=== PATIENT | male | born 2000 | race Caucasian/White ===

== ENCOUNTER 2025-01-15 10:54 | Emergency (ER) | payer SELFPAY ==
[2025-01-15 10:59] VITALS: BP 130/95
--- NOTE | 2025-01-15 11:46 | ED.GENMED ---
History of Present Illness
General
Chief Complaint: Eye Problems
Source: patient
Exam Limitations: none
Time Seen by Provider: 01/15/25 11:31
Nursing documentation reviewed up to this point in time: agreed with
History of Present Illness
History of Present Illness:
Patient is a 24-year-old male who presents to the ER complaining of right eye irritation since Sunday for the past 2 days. He denies any exact injury but does work as a agricultural mechanic and was concerned that he may have gotten something in his eye. He
also notices that since his right eye has been irritated his right nares has been running. He denies any actual fever or chills. He does feel scratchy and feels a foreign body sensation to the right eye. He does not wear contacts. He denies any
fever or chills. He denies any decreased vision.
Phy Exam
General Physical Exam
General Presentation: no apparent distress
General age: appears stated age
General Skin: warm and dry
General Habitus: normal
General Mental: alert
General Hydration: appears well hydrated
Eye Exam
Eye Exam: PERRL, EOMI and other (right eye is injected + black small foreign body visible to right eye over cornea )
Able to obtain acuity?: Yes
Eye Exam General: PERRL: bilateral and EOM intact: bilateral
Pupil Exam: Bilateral: round and reactive
Neurological Exam
Neurological Exam: alert and oriented x3
Musculoskeletal Exam
Musculoskeletal Exam: full ROM
Skin Exam
Skin Exam: normal color and warm/dry
Psychiatric Exam
Psychiatric Exam: normal mood/affect
Course
Orders/Labs/Results
Orders:
Orders
01/15/25 12:32
Fluorescein Sodium [Ful-Josephine] 1 mg .ROUTE .STK-MED ONE
Tetracaine HCl [Tetracaine 0.5% Ophthalmic Solution] 2 drop .ROUTE .STK-MED ONE
01/15/25 13:07
Tetanus/Diphth/Acelpertussis [Adacel] 0.5 ml IM .ONCE ONE
Vital Signs
Initial and Last Documented VS:
Initial Vital Signs
Temp Pulse Resp BP Pulse Ox
98.3 F 73 16 130/95 98
01/15/25 10:59 01/15/25 10:59 01/15/25 10:59 01/15/25 10:59 01/15/25 10:59
Last Documented Vital Signs
Temp Pulse Resp BP Pulse Ox
98.3 F 73 16 130/95 98
01/15/25 10:59 01/15/25 10:59 01/15/25 10:59 01/15/25 10:59 01/15/25 11:47
MDM/Problems Addressed
MDM/Problems Addressed:
Patient works as a agricultural mechanic and complaint of right eye irritation for the past several days. He felt a foreign body sensation and on exam has a black foreign body in his right eye. I was not able to remove this. I did discuss with ophthalmology
Dr. Joshi and she will see him in the office at 1: 45 pm. pt is self pay and is is agreeable to going directly to the reimbursement specialist office. Patient is up-to-date on tetanus
*Pulse Oximetry
SaO2: 98
Oxygen Mode of Delivery: Room air
Patient hypoxic: no
*Critical Care Note
Total Time (30-74mins, 75-104mins- exclusive of procedures): Not Applicable
ED Attending Note
-
Portions of this chart may have been created with voice recognition software.� Occasional wrong word or��sound alike� substitutions may have occurred due to the inherent limitations of voice recognition software.
Discharge Plan
Departure
Patient Disposition: Home (Routine Discharge)
Date of Disposition: 01/15/25
Time of Disposition: 13:03
Patient with high blood pressure during this ER visit?: Yes
Condition: Fair
Covid-19: Not Applicable
Discharge Problem:
foreign body right eye
Instructions: Foreign Body in Eye (DC)
Referrals:
Nena Joshi MD [Active, Ophthalmology]
NONE,* [Family Provider, Internal Medicine]
Stand Alone Forms: Return to Work
Activity Restrictions/Additional Instructions:
Go directly to the office of DR Nena Joshi after 1: 45 pm to have foreign body removed from right eye. You were also updated on tetanus.
Interventions
Interventions:
*Risk Screen - Suicide Last Done: 01/15/25 11:00
*General Assessment Last Done: 01/15/25 11:36
*Neglect/Abuse Screening Last Done: 01/15/25 11:00
*ED- Fall Risk Assessment Last Done: 01/15/25 11:36
*ED COVID-19 Vaccine History Last Done: 01/15/25 11:36
*Nursing Disposition Last Done: 01/15/25 13:20
Discharge Date and Time
Discharge Date/Time: 01/15/25 13:20
Print Language: [id number]
[2025-01-15] MEDS: ADACEL 0.5 ML IM (13:15)
== END 2025-01-15 13:20 | disposition home or self-care (01) ==
LOC: EMR 10:54
PROVIDERS: EMERGENCY PHYSICIAN Emergency Medicine
DX: T15.91XA Foreign body on external eye, part unspecified, right eye, initial encounter (principal); W44.9XXA Unspecified foreign body entering into or through a natural orifice, initial encounter; Z23 Encounter for immunization
CPT/HCPCS: 99283; 90471; 90715